=== PATIENT | male | born 1985 | race Two or more races ===

== ENCOUNTER 2024-11-18 12:41 | Inpatient (IN) | payer OTHER ==
[~2024-11-18] VITALS: Ht 172.7 cm; Wt 85.5 kg
[2024-11-18] MEDS: SODIUM CHLORIDE 0.9% 1,000 ML IV ONE (13:31)
[2024-11-18] MEDS: LORazepam 2 MG/ML VIAL IVP PRN (13:36)
[2024-11-18] MEDS: ONDANSETRON HCL 4 MG/2 ML VIAL IVP PRN (13:36)
[2024-11-18 13:38] LABS: BASOPHILS % (AUTO) 0.5 % (0.0-2.0); EOSINOPHILS % (AUTO) 0.2 % (1.0-6.0); HEMATOCRIT 41.6 % (41-53); HEMOGLOBIN 14.3 g/dL (13.5-17.5); LYMPHOCYTES # (AUTO) 1.2 K/uL (1.0-4.8); MEAN CORPUSCULAR HEMOGLOBIN 33.2 pg (26.0-34.0); MEAN CORPUSCULAR HGB CONC 34.4 G/dL (31.0-37.0); MEAN CORPUSCULAR VOLUME 97 fL (80-100); MONOCYTES # (AUTO) 0.4 K/uL (0.1-1.0); MONOCYTES % (AUTO) 5.3 % (2.0-9.0); NEUTROPHILS # (AUTO) 5.3 K/uL (1.8-7.7); PLATELET COUNT (AUTO) 288 K/uL (150-450); RED BLOOD CELL COUNT(AUTO) 4.31 MIL/uL (4.50-5.90); WHITE BLOOD COUNT (AUTO) 6.8 K/uL (4.5-11.0)
[2024-11-18 13:46] LABS: ANION GAP 7 mmol/L (8-16); CARBON DIOXIDE 28 mmol/L (22-29); CHLORIDE 103 mmol/L (98-107); GLOMERULAR FILTR. RATE CALC > 60 mL/min (>60); GLUCOSE,RANDOM 91 mg/dL (70-110); POTASSIUM 3.8 mmol/L (3.5-5.1); SODIUM SERUM 138 mmol/L (136-145); UREA NITROGEN, BLOOD 9 mg/dL (7-18)
[2024-11-18 13:52] LABS: ALBUMIN 3.8 g/dL (3.4-5.0); BILIRUBIN,DIRECT 0.2 mg/dL (0.00-0.20); TOTAL PROTEIN, SERUM 7.4 g/dL (6.4-8.2)
[2024-11-18 16:37] LABS: PH,URINE DRUG SCREEN 7.5 (5.0-8.0)
[2024-11-18 16:38] LABS: APPEARANCE,URINE CLEAR (CLEAR); BILIRUBIN,URINE NEGATIVE (NEGATIVE); COLOR,URINE COLORLESS (YELLOW); GLUCOSE, URINE (UA) NEGATIVE (NEGATIVE); KETONES,URINE NEGATIVE (NEGATIVE); LEUKOCYTE ESTERASE ,URINE NEGATIVE (NEGATIVE); NITRATE,URINE NEGATIVE (NEGATIVE); OCCULT BLOOD,URINE NEGATIVE (NEGATIVE); PH,URINE 7.5 (5.0-8.0); PROTEIN,URINE NEGATIVE (NEGATIVE); SPECIFIC GRAVITIY, URINE 1.006 (1.003-1.030); UROBILINOGEN,URINE <=1.0 mg/dL (<=1.0)
[2024-11-18 16:45] LABS: ALCOHOL, URINE DRUG SCREEN NEGATIVE (NEGATIVE); AMPHET/METH SCREEN,URINE POSITIVE (NEGATIVE); BARBITURATE SCREEN, URINE NEGATIVE (NEGATIVE); BENZODIAZEPINES SCREEN,URINE NEGATIVE (NEGATIVE); CANNABINOID SCREEN,URINE POSITIVE (NEGATIVE); COCAINE SCREEN,URINE NEGATIVE (NEGATIVE); METHADONE SCREEN, URINE NEGATIVE (NEGATIVE); OPIATE SCREEN,URINE POSITIVE (NEGATIVE); PHENCYCLIDINE SCREEN,URINE NEGATIVE (NEGATIVE)
[2024-11-18] MEDS: METOCLOPRAMIDE HCL 5 MG/ML 2 ML VIAL IVP ONE (17:54)
[2024-11-18] MEDS: MAGNESIUM HYDROXIDE SUSPENSION 30 ML UDCUP PO PRN (18:11)
[2024-11-18] MEDS: ACETAMINOPHEN 325 MG TABLET PO PRN (18:12)
[2024-11-18] MEDS: FAMOTIDINE 20 MG TABLET PO SCH (19:54)
[2024-11-18 21:00] VITALS: BP 100/54; PULSE 69; RESP 18; TEMP 98.1; O2SAT 99
[2024-11-18] MEDS: ZOLPIDEM TARTRATE 5 MG TABLET PO PRN (21:07)
[2024-11-19] MEDS: LORazepam 2 MG/ML VIAL IVP ONE (03:05)
[2024-11-19 08:28] VITALS: BP 136/97; PULSE 95; RESP 19; TEMP 98; O2SAT 99
[2024-11-19] MEDS: SODIUM CHLORIDE 0.9% 1,000 ML IV ONE (11:00)
[2024-11-19 20:00] VITALS: BP 116/91; PULSE 82; RESP 18; TEMP 98.4; O2SAT 97
[2024-11-19] MEDS: CloNIDine HCL 0.1 MG TABLET PO ONE (23:53)
[2024-11-20 03:07] LABS: HEPATITIS C AB (EIA) Non Reactive (Non Reactive)
[2024-11-20 04:09] VITALS: BP 110/68; PULSE 67; RESP 20; TEMP 98.4; O2SAT 97
[2024-11-20 08:25] VITALS: BP 130/90; PULSE 75; RESP 20; TEMP 98.6; O2SAT 99
[2024-11-20] MEDS: TraMADol HCL 50 MG TABLET PO PRN (17:30)
[2024-11-20 19:46] VITALS: BP 112/59; PULSE 58; RESP 20; TEMP 98.6; O2SAT 100
[2024-11-20] MEDS: ZOLPIDEM TARTRATE 5 MG TABLET PO ONE (23:51)
[2024-11-21 02:35] VITALS: BP 127/87; PULSE 70; RESP 20; TEMP 97.9; O2SAT 100
[2024-11-21] MEDS: LORazepam 2 MG/ML VIAL IVP ONE (06:50)
[2024-11-21 20:18] VITALS: BP 127/91; PULSE 61; RESP 17; TEMP 97.8; O2SAT 99
[2024-11-21] MEDS: ZOLPIDEM TARTRATE 10 MG TABLET PO PRN (21:23)
[2024-11-22] MEDS: DiphenhydrAMINE HCL 25 MG CAPSULE PO PRN (03:29)
[2024-11-22 05:23] VITALS: BP 123/98; PULSE 106; RESP 18; TEMP 98; O2SAT 100
[2024-11-22 09:07] VITALS: BP 121/89; PULSE 99; RESP 20; TEMP 98.4; O2SAT 100
[2024-11-22] MEDS ORDERED: MAGN-169 PO (10:10)
[2024-11-22] MEDS ORDERED: ACET-2247 PO (10:10)
== END 2024-11-22 12:00 | DRG 392 ==
LOC: EMS 12:44 → EDH 13:10 → 6N 20:45
PROVIDERS: ADMIT Internal Medicine; ATTEND Internal Medicine
DX: R10.84 Generalized abdominal pain (principal); F11.13 Opioid abuse with withdrawal; F15.23 Other stimulant dependence with withdrawal; R11.2 Nausea with vomiting, unspecified
CPT/HCPCS: 80048; 80076; 80307; 81003; 83690; 85025; 86803; 87340; 99285; J2060; J2405; J2765; J7030

== ENCOUNTER 2025-02-17 17:01 | Inpatient (IN) | payer OTHER ==
[~2025-02-17] VITALS: Ht 172.7 cm; Wt 88.6 kg
[~2025-02-17 17:01] MED LIST: ACET-2247 PO; MAGN-169 PO
[2025-02-17 18:25] LABS: PLATELET COUNT (AUTO) 210 K/uL (150-450); RED BLOOD CELL COUNT(AUTO) 4.61 MIL/uL (4.50-5.90); RED CELL DISTRIBUTION WIDTH 12.6 % (11.5-14.5); WHITE BLOOD COUNT (AUTO) 7.1 K/uL (4.5-11.0)
[2025-02-17 18:35] LABS: CALCIUM, TOTAL 9.0 mg/dL (8.8-10.5); CREATININE 0.90 mg/dL (0.60-1.30); GLOMERULAR FILTR. RATE CALC > 60 mL/min (>60); GLUCOSE,RANDOM 85 mg/dL (70-110); SODIUM SERUM 141 mmol/L (136-145); UREA NITROGEN, BLOOD 13 mg/dL (7-18)
[2025-02-17 18:44] LABS: ASPARTATE AMINOTRANSFERASE 853.0 U/L (15-37); TOTAL PROTEIN, SERUM 7.4 g/dL (6.4-8.2)
[2025-02-17] MEDS ORDERED: 0.9% SODIUM CHLORIDE 10 ML SYRINGE IVP ONE (19:34)
[2025-02-17] MEDS ORDERED: IOHEXOL 350 MG/ML 100 ML VIAL ONE (19:34)
[2025-02-17] MEDS ORDERED: SODIUM CHLORIDE 0.9% 100 ML ONE (19:34)
[2025-02-17] MEDS: KETOROLAC TROMETHAMINE 30 MG/ML VIAL IVP ONE (21:06)
[2025-02-17 23:52] VITALS: BP 122/80; PULSE 61; RESP 18; TEMP 98.8; O2SAT 98
[2025-02-18] MEDS ORDERED: IPRATROPIUM BROMIDE 0.5 MG/2.5 ML NEB SOLUTION NEB PRN (03:15)
[2025-02-18] MEDS ORDERED: ONDANSETRON HCL 4 MG/2 ML VIAL IVP PRN (03:15)
[2025-02-18] MEDS ORDERED: MAGNESIUM HYDROXIDE SUSPENSION 30 ML UDCUP PO PRN (03:15)
[2025-02-18] MEDS ORDERED: BISACODYL 10 MG RECTAL RECTAL SUPPOSITORY PR PRN (03:15)
[2025-02-18] MEDS ORDERED: HYDROCODONE/ACETAMINOPHEN 5-325 MG TABLET PO PRN (03:15)
[2025-02-18] MEDS ORDERED: MORPHINE SULFATE 2 MG/ML SYRINGE IVP PRN (03:15)
[2025-02-18] MEDS ORDERED: ALBUTEROL SULFATE 2.5 MG/0.5 ML NEB SOLUTION NEB PRN (03:15)
[2025-02-18 05:30] VITALS: BP 121/85; PULSE 66; RESP 18; TEMP 98.2; O2SAT 99
[2025-02-18 06:46] LABS: PLATELET COUNT (AUTO) 200 K/uL (150-450); RED BLOOD CELL COUNT(AUTO) 4.63 MIL/uL (4.50-5.90); RED CELL DISTRIBUTION WIDTH 12.7 % (11.5-14.5); WHITE BLOOD COUNT (AUTO) 6.8 K/uL (4.5-11.0)
[2025-02-18 07:27] LABS: CALCIUM, TOTAL 8.6 mg/dL (8.8-10.5); CREATININE 0.98 mg/dL (0.60-1.30); GLOMERULAR FILTR. RATE CALC > 60 mL/min (>60); GLUCOSE,RANDOM 84 mg/dL (70-110); SODIUM SERUM 140 mmol/L (136-145); TOTAL PROTEIN, SERUM 6.9 g/dL (6.4-8.2); UREA NITROGEN, BLOOD 17 mg/dL (7-18)
[2025-02-18 07:42] LABS: ASPARTATE AMINOTRANSFERASE 1001 U/L (15-37)
[2025-02-18] MEDS ORDERED: HEPARIN SODIUM,PORCINE 5,000 UNITS/ML VIAL SQ SCH (08:00)
[2025-02-18] MEDS: PANTOPRAZOLE SODIUM 40 MG DR TABLET PO SCH (08:52)
[2025-02-18] MEDS ORDERED: MEBROFENIN TC99M/MCL ISOTOPE 1 EA INJ INJ ONE (10:05)
[2025-02-18 16:03] VITALS: BP 113/74; PULSE 68; RESP 18; TEMP 98.2; O2SAT 97
[2025-02-18 18:02] LABS: PH,URINE DRUG SCREEN 6.0 (5.0-8.0)
[2025-02-18 18:03] LABS: APPEARANCE,URINE CLEAR (CLEAR); GLUCOSE, URINE (UA) NEGATIVE (NEGATIVE); LEUKOCYTE ESTERASE ,URINE NEGATIVE (NEGATIVE); NITRATE,URINE NEGATIVE (NEGATIVE); OCCULT BLOOD,URINE NEGATIVE (NEGATIVE); SPECIFIC GRAVITIY, URINE 1.029 (1.003-1.030)
[2025-02-18 18:08] LABS: ALCOHOL, URINE DRUG SCREEN NEGATIVE (NEGATIVE); AMPHET/METH SCREEN,URINE NEGATIVE (NEGATIVE); BARBITURATE SCREEN, URINE NEGATIVE (NEGATIVE); CANNABINOID SCREEN,URINE NEGATIVE (NEGATIVE); COCAINE SCREEN,URINE NEGATIVE (NEGATIVE); METHADONE SCREEN, URINE NEGATIVE (NEGATIVE)
[2025-02-18 20:46] VITALS: BP 116/76; PULSE 71; RESP 18; TEMP 98.1; O2SAT 99
[2025-02-19] MEDS: ZOLPIDEM TARTRATE 5 MG TABLET PO PRN (00:51)
[2025-02-19 04:03] VITALS: BP 117/81; PULSE 75; RESP 18; TEMP 97.7; O2SAT 94
[2025-02-19 06:07] LABS: HEPATITIS B CORE IGM Negative (Negative)
[2025-02-19 08:00] VITALS: BP 114/75; PULSE 73; RESP 20; TEMP 97.9; O2SAT 98
[2025-02-19 10:32] LABS: ASPARTATE AMINOTRANSFERASE 765 U/L (15-37); CALCIUM, TOTAL 8.7 mg/dL (8.8-10.5); CREATININE 0.91 mg/dL (0.60-1.30); GLOMERULAR FILTR. RATE CALC > 60 mL/min (>60); GLUCOSE,RANDOM 120 mg/dL (70-110); SODIUM SERUM 140 mmol/L (136-145); TOTAL PROTEIN, SERUM 7.2 g/dL (6.4-8.2); UREA NITROGEN, BLOOD 12 mg/dL (7-18)
[2025-02-19] MEDS ORDERED: POTASSIUM CHL 10 MEQ/WATER 50 ML IV PRN (11:30)
[2025-02-19] MEDS: POTASSIUM CHLORIDE 20 MEQ ER TABLET PO PRN (12:56)
[2025-02-19 20:27] VITALS: BP 107/74; PULSE 74; RESP 17; TEMP 98.1; O2SAT 100
[2025-02-20 04:39] VITALS: BP 106/73; PULSE 70; RESP 20; TEMP 98.1; O2SAT 99
[2025-02-20 09:17] VITALS: BP 110/79; PULSE 80; RESP 20; TEMP 97.3; O2SAT 98
[2025-02-20 11:58] LABS: ASPARTATE AMINOTRANSFERASE 550.0 U/L (15-37); TOTAL PROTEIN, SERUM 7.2 g/dL (6.4-8.2)
[2025-02-20] MEDS: ACETAMINOPHEN 325 MG TABLET PO PRN (16:01)
[2025-02-20 20:00] VITALS: BP 110/84; PULSE 67; RESP 18; TEMP 98.2; O2SAT 97
[2025-02-21 06:58] LABS: ASPARTATE AMINOTRANSFERASE 420 U/L (15-37); CALCIUM, TOTAL 8.5 mg/dL (8.8-10.5); CREATININE 0.95 mg/dL (0.60-1.30); GLOMERULAR FILTR. RATE CALC > 60 mL/min (>60); GLUCOSE,RANDOM 179 mg/dL (70-110); SODIUM SERUM 137 mmol/L (136-145); TOTAL PROTEIN, SERUM 7.1 g/dL (6.4-8.2); UREA NITROGEN, BLOOD 13 mg/dL (7-18)
[2025-02-21 09:00] VITALS: BP 116/85; PULSE 87; RESP 18; TEMP 97.5; O2SAT 99
[2025-02-22 15:07] LABS: HEPATITIS C AB (EIA) Reactive (Non Reactive); HEPATITIS C RT-PCR,QNT 2210000 IU/mL
== END 2025-02-21 18:08 | DRG 871 ==
LOC: EMS 17:01 → EDH 21:57 → 6S 23:34
PROVIDERS: ADMIT Hospitalist; ATTEND Hospitalist
DX: A41.9 Sepsis, unspecified organism (principal); K72.00 Acute and subacute hepatic failure without coma; B17.9 Acute viral hepatitis, unspecified; K80.20 Calculus of gallbladder without cholecystitis without obstruction; F19.10 Other psychoactive substance abuse, uncomplicated; E87.6 Hypokalemia
CPT/HCPCS: 74177; 76705; 78226; 80048; 80053; 80074; 80076; 80307; 81003; 83690; 84132; 85025; 85610; 87522; 96374; 99285; A9537; J1644; J1885; J7050